=== PATIENT | male | born 1965 | race Caucasian/White ===

== ENCOUNTER 2018-07-29 13:06 | Inpatient (IN) | payer MEDICAID ==
[~2018-07-29] VITALS: Ht 157.5 cm; Wt 78.0 kg
[2018-07-29] MEDS ORDERED: ASPIRIN 81MG TABLET PO ONE (14:45)
[2018-07-29 14:52] LABS: BASOPHILS % 0.4 % (0.0-2.0); EOSINOPHILS % 0.5 % (0.0-5.0); HEMOGLOBIN. 13.8 g/dL (14.0-18.0); LYMPHOCYTES % 15.4 % (20.0-50.0); MEAN CORPUSCULAR HEMOGLOBIN 27.4 pg (28.0-32.0); MEAN CORPUSCULAR VOLUME 79.5 fL (80.0-94.0); MEAN PLATELET VOLUME 8.1 fl (7.4-10.4); MONOCYTES % 4.9 % (2.0-8.0); NEUTROPHILS % 78.8 % (40.0-76.0); PLATELET 376 x1000/uL (130-400); RED BLOOD CELL COUNT 5.04 mill/uL (4.7-6.1); RED CELL DISTRIBUTION WIDTH 14.1 % (11.6-14.6)
[2018-07-29 14:58] LABS: CHLORIDE 104 mEq/L (98-107)
[2018-07-29] MEDS ORDERED: CLONIDINE 0.1MG TABLET PO PRN (20:15)
[2018-07-29] MEDS ORDERED: IPRATROPIUM/ALBUTEROL 0.5-3(2.5)MG/3ML NEB INH PRN (20:15)
[2018-07-29] MEDS ORDERED: DOCUSATE SODIUM 100MG CAPSULE PO PRN (20:15)
[2018-07-29] MEDS ORDERED: ONDANSETRON HCL 4MG/2ML INJ IV PRN (20:15)
[2018-07-29] MEDS ORDERED: ACETAMINOPHEN 325MG TABLET PO PRN (20:15)
[2018-07-29] MEDS ORDERED: LORAZEPAM 0.5MG TABLET PO PRN (20:15)
[2018-07-29 20:34] LABS: PHOSPHORUS 3.5 mg/dL (2.5-4.9)
[2018-07-29 20:39] LABS: CREATINE KINASE MB FRACTION 2.7 ng/mL (0.5-3.6)
[2018-07-29 23:39] LABS: CLARITY URINE CLEAR (CLEAR); COLOR URINE YELLOW (YELLOW); KETONES URINE NEGATIVE (NEGATIVE); LEUKOCYTE ESTERASE URINE NEGATIVE (NEGATIVE); NITRITE URINE NEGATIVE (NEGATIVE); OCCULT BLOOD URINE NEGATIVE (NEGATIVE); PROTEIN URINE NEGATIVE (NEGATIVE); SPECIFIC GRAVITY URINE 1.018 (1.005-1.030); UROBILINOGEN URINE 0.2 E.U./dL (0.2-1.0)
[2018-07-30 00:41] LABS: *AMPHETAMINES SCREEN URINE NEGATIVE (NEGATIVE); *BARBITURATES SCREEN URINE NEGATIVE (NEGATIVE); *BENZODIAZEPINES SCREEN URINE NEGATIVE (NEGATIVE); *COCAINE SCREEN URINE NEGATIVE (NEGATIVE)
[2018-07-30 00:42] LABS: CANNABINOID URINE SCREEN NEGATIVE (NEGATIVE); METHADONE URINE SCREEN NEGATIVE (NEGATIVE); OPIATES URINE SCREEN NEGATIVE (NEGATIVE); PHENCYCLIDINE URINE SCREEN NEGATIVE (NEGATIVE)
[2018-07-30 03:05] VITALS: BP 107/61
[2018-07-30 04:00] VITALS: BP 107/61
[2018-07-30] MEDS ORDERED: AMIT25TA9 PO (05:07)
[2018-07-30] MEDS ORDERED: CARV3.1242 PO (05:08)
[2018-07-30] MEDS ORDERED: METF-416 PO (05:09)
[2018-07-30] MEDS ORDERED: NITR0.4T49 SL (05:09)
[2018-07-30] MEDS ORDERED: SITA25TA3 PO (05:10)
[2018-07-30 06:49] LABS: BASOPHILS % 0.4 % (0.0-2.0); EOSINOPHILS % 0.6 % (0.0-5.0); HEMOGLOBIN. 13.5 g/dL (14.0-18.0); LYMPHOCYTES % 20.2 % (20.0-50.0); MEAN CORPUSCULAR HEMOGLOBIN 27.5 pg (28.0-32.0); MEAN CORPUSCULAR VOLUME 79.6 fL (80.0-94.0); MONOCYTES % 4.9 % (2.0-8.0); NEUTROPHILS % 73.9 % (40.0-76.0); PLATELET 337 x1000/uL (130-400); RED BLOOD CELL COUNT 4.91 mill/uL (4.7-6.1)
[2018-07-30 07:32] LABS: CHLORIDE 105 mEq/L (98-107)
[2018-07-30 08:17] VITALS: BP 109/56
[2018-07-30 11:32] VITALS: BP 120/67
[2018-07-30] MEDS ORDERED: DEXTROSE 50% WATER 50ML SYRINGE IV PRN (13:30)
[2018-07-30] MEDS: HYDROCODONE/ACETAMINOPHEN 5/325MG TABLET PO PRN (15:22)
[2018-07-30 15:57] VITALS: BP 133/78
[2018-07-30] MEDS: BLOOD SUGAR DIAGNOSTIC STRIP TEST SCH ×2 (17:31→20:39)
[2018-07-30] MEDS: INSULIN LISPRO 100 UNITS/ML SUBCUT SCH ×2 (17:55→21:21)
[2018-07-30 20:00] VITALS: BP 119/59
[2018-07-30] MEDS: ATORVASTATIN CALCIUM 40MG TABLET PO SCH (20:39)
[2018-07-30] MEDS: METOPROLOL TARTRATE 25MG TABLET PO SCH (20:39)
[2018-07-31] VITALS (7 sets, daily range): BP systolic 113–136; BP diastolic 61–77
[2018-07-31 06:39] LABS: BASOPHILS % 0.3 % (0.0-2.0); EOSINOPHILS % 1.1 % (0.0-5.0); HEMATOCRIT. 40.3 % (42.0-52.0); HEMOGLOBIN. 14.1 g/dL (14.0-18.0); LYMPHOCYTES % 24.4 % (20.0-50.0); MEAN CORPUSCULAR HEMOGLOBIN 27.8 pg (28.0-32.0); MEAN CORPUSCULAR VOLUME 79.6 fL (80.0-94.0); MEAN PLATELET VOLUME 8.3 fl (7.4-10.4); MONOCYTES % 6.3 % (2.0-8.0); NEUTROPHILS % 67.9 % (40.0-76.0); PLATELET 323 x1000/uL (130-400); RED BLOOD CELL COUNT 5.07 mill/uL (4.7-6.1); RED CELL DISTRIBUTION WIDTH 14.1 % (11.6-14.6)
[2018-07-31] MEDS: BLOOD SUGAR DIAGNOSTIC STRIP TEST SCH ×4 (06:45→21:07)
[2018-07-31 07:42] LABS: CHLORIDE 103 mEq/L (98-107)
[2018-07-31] MEDS: METOPROLOL TARTRATE 25MG TABLET PO SCH ×2 (08:30→21:08)
[2018-07-31] MEDS: INSULIN LISPRO 100 UNITS/ML SUBCUT SCH ×4 (08:35→21:06)
[2018-07-31] MEDS ORDERED: HEPARIN SODIUM 1,000 UNIT/1ML VIAL IV ONE (13:42)
[2018-07-31] MEDS ORDERED: LIDOCAINE HCL 1% 20ML VIAL (Pyxis) INJ ONE (15:26)
[2018-07-31] MEDS ORDERED: IOHEXOL-300 100 ML BOTTLE ONE ×2 (15:26→15:56)
[2018-07-31] MEDS ORDERED: FENTANYL CITRATE/PF 50MCG/ML 2ML VIAL ONE (15:54)
[2018-07-31] MEDS ORDERED: MIDAZOLAM HCL 2 MG/2 ML VIAL ONE (15:54)
[2018-07-31] MEDS ORDERED: ATROPINE SULFATE 1MG/10ML SYR IV PRN (16:30)
[2018-07-31] MEDS ORDERED: ACETAMINOPHEN 325MG TABLET PO PRN (16:30)
[2018-07-31] MEDS: ASPIRIN 81MG EC TABLET PO SCH (17:46)
[2018-07-31] MEDS: ATORVASTATIN CALCIUM 40MG TABLET PO SCH (21:08)
[2018-07-31] MEDS: HYDROCODONE/ACETAMINOPHEN 5/325MG TABLET PO PRN (23:12)
[2018-08-01] VITALS (12 sets, daily range): BP systolic 100–145; BP diastolic 52–85
[2018-08-01] MEDS: BLOOD SUGAR DIAGNOSTIC STRIP TEST SCH ×4 (06:16→20:26)
[2018-08-01 07:09] LABS: BASOPHILS % 0.4 % (0.0-2.0); EOSINOPHILS % 1.2 % (0.0-5.0); HEMATOCRIT. 40.8 % (42.0-52.0); HEMOGLOBIN. 13.9 g/dL (14.0-18.0); LYMPHOCYTES % 23.8 % (20.0-50.0); MEAN CORPUSCULAR HEMOGLOBIN 27.5 pg (28.0-32.0); MEAN CORPUSCULAR VOLUME 80.6 fL (80.0-94.0); MEAN PLATELET VOLUME 8.1 fl (7.4-10.4); MONOCYTES % 6.4 % (2.0-8.0); NEUTROPHILS % 68.2 % (40.0-76.0); PLATELET 311 x1000/uL (130-400); RED BLOOD CELL COUNT 5.06 mill/uL (4.7-6.1); RED CELL DISTRIBUTION WIDTH 13.9 % (11.6-14.6)
[2018-08-01 07:30] LABS: CHLORIDE 103 mEq/L (98-107)
[2018-08-01] MEDS: ASPIRIN 81MG EC TABLET PO SCH (08:14)
[2018-08-01] MEDS: INSULIN LISPRO 100 UNITS/ML SUBCUT SCH ×4 (08:14→20:31)
[2018-08-01] MEDS: METOPROLOL TARTRATE 25MG TABLET PO SCH ×2 (08:15→20:32)
[2018-08-01] MEDS: LISINOPRIL 5MG TABLET PO SCH (11:01)
[2018-08-01] MEDS: ATORVASTATIN CALCIUM 40MG TABLET PO SCH (20:32)
[2018-08-02] VITALS (12 sets, daily range): BP systolic 103–140; BP diastolic 47–86
[2018-08-02 06:40] LABS: BASOPHILS % 0.3 % (0.0-2.0); EOSINOPHILS % 1.4 % (0.0-5.0); HEMATOCRIT. 42.4 % (42.0-52.0); HEMOGLOBIN. 14.5 g/dL (14.0-18.0); LYMPHOCYTES % 22.9 % (20.0-50.0); MEAN CORPUSCULAR HEMOGLOBIN 27.3 pg (28.0-32.0); MEAN CORPUSCULAR VOLUME 79.9 fL (80.0-94.0); MONOCYTES % 6.3 % (2.0-8.0); NEUTROPHILS % 69.1 % (40.0-76.0); PLATELET 277 x1000/uL (130-400); RED BLOOD CELL COUNT 5.31 mill/uL (4.7-6.1)
[2018-08-02 06:43] LABS: CHLORIDE 105 mEq/L (98-107)
[2018-08-02] MEDS: BLOOD SUGAR DIAGNOSTIC STRIP TEST SCH ×4 (06:52→20:21)
[2018-08-02] MEDS: INSULIN LISPRO 100 UNITS/ML SUBCUT SCH ×4 (07:30→20:21)
[2018-08-02] MEDS: LISINOPRIL 5MG TABLET PO SCH (09:17)
[2018-08-02] MEDS: ASPIRIN 81MG EC TABLET PO SCH (09:17)
[2018-08-02] MEDS: METOPROLOL TARTRATE 25MG TABLET PO SCH ×2 (09:17→20:20)
[2018-08-02] MEDS ORDERED: IOHEXOL-300 100 ML BOTTLE ONE (18:15)
[2018-08-02] MEDS: ATORVASTATIN CALCIUM 40MG TABLET PO SCH (20:20)
[2018-08-03] VITALS (12 sets, daily range): BP systolic 110–140; BP diastolic 47–80
[2018-08-03 06:02] LABS: BASOPHILS % 0.4 % (0.0-2.0); EOSINOPHILS % 1.6 % (0.0-5.0); HEMATOCRIT. 41.7 % (42.0-52.0); HEMOGLOBIN. 14.3 g/dL (14.0-18.0); LYMPHOCYTES % 21.7 % (20.0-50.0); MEAN CORPUSCULAR HEMOGLOBIN 27.6 pg (28.0-32.0); MEAN CORPUSCULAR VOLUME 80.4 fL (80.0-94.0); MONOCYTES % 5.7 % (2.0-8.0); NEUTROPHILS % 70.6 % (40.0-76.0); PLATELET 291 x1000/uL (130-400); RED BLOOD CELL COUNT 5.19 mill/uL (4.7-6.1); RED CELL DISTRIBUTION WIDTH 13.9 % (11.6-14.6)
[2018-08-03 06:03] LABS: CHLORIDE 105 mEq/L (98-107)
[2018-08-03] MEDS: BLOOD SUGAR DIAGNOSTIC STRIP TEST SCH ×4 (07:31→20:44)
[2018-08-03] MEDS: INSULIN LISPRO 100 UNITS/ML SUBCUT SCH ×4 (08:11→20:50)
[2018-08-03] MEDS: METOPROLOL TARTRATE 25MG TABLET PO SCH ×2 (08:53→20:53)
[2018-08-03] MEDS: LISINOPRIL 5MG TABLET PO SCH (08:53)
[2018-08-03] MEDS: ATORVASTATIN CALCIUM 40MG TABLET PO SCH (20:51)
[2018-08-04] VITALS (12 sets, daily range): BP systolic 109–134; BP diastolic 52–82
[2018-08-04] MEDS: BLOOD SUGAR DIAGNOSTIC STRIP TEST SCH ×4 (06:23→20:43)
[2018-08-04 06:41] LABS: BASOPHILS % 0.2 % (0.0-2.0); EOSINOPHILS % 1.8 % (0.0-5.0); HEMATOCRIT. 41.4 % (42.0-52.0); HEMOGLOBIN. 14.2 g/dL (14.0-18.0); LYMPHOCYTES % 21.3 % (20.0-50.0); MEAN CORPUSCULAR HEMOGLOBIN 27.2 pg (28.0-32.0); MEAN CORPUSCULAR VOLUME 79.4 fL (80.0-94.0); MEAN PLATELET VOLUME 7.9 fl (7.4-10.4); MONOCYTES % 5.9 % (2.0-8.0); NEUTROPHILS % 70.8 % (40.0-76.0); PLATELET 272 x1000/uL (130-400); RED BLOOD CELL COUNT 5.22 mill/uL (4.7-6.1); RED CELL DISTRIBUTION WIDTH 14.3 % (11.6-14.6)
[2018-08-04 06:54] LABS: CHLORIDE 103 mEq/L (98-107)
[2018-08-04] MEDS: LISINOPRIL 5MG TABLET PO SCH (08:10)
[2018-08-04] MEDS: METOPROLOL TARTRATE 25MG TABLET PO SCH ×2 (08:10→20:55)
[2018-08-04] MEDS: INSULIN LISPRO 100 UNITS/ML SUBCUT SCH ×4 (08:14→20:53)
[2018-08-04] MEDS ORDERED: INSULIN GLARGINE UD 100 UNITS/ML SYR SUBCUT SCH (10:00)
[2018-08-04] MEDS: ATORVASTATIN CALCIUM 40MG TABLET PO SCH (20:54)
[2018-08-05] VITALS (12 sets, daily range): BP systolic 101–131; BP diastolic 57–78
[2018-08-05] MEDS: BLOOD SUGAR DIAGNOSTIC STRIP TEST SCH ×4 (06:33→21:00)
[2018-08-05] MEDS: LISINOPRIL 5MG TABLET PO SCH (08:08)
[2018-08-05] MEDS: METOPROLOL TARTRATE 25MG TABLET PO SCH ×2 (08:08→21:05)
[2018-08-05] MEDS: INSULIN LISPRO 100 UNITS/ML SUBCUT SCH ×4 (08:16→21:08)
[2018-08-05] MEDS: INSULIN GLARGINE UD 100 UNITS/ML SYR SUBCUT SCH ×3 (11:09→21:24)
[2018-08-05 12:42] LABS: INR 1.1; PARTIAL THROMBOPLASTIN TIME 27.8 sec (23.4-31.0); PROTHROMBIN TIME 10.9 sec (9.1-11.1)
[2018-08-05] MEDS: ATORVASTATIN CALCIUM 40MG TABLET PO SCH (21:05)
[2018-08-05] MEDS ORDERED: CHLORHEXIDINE GLUCONATE 4% EXTERNAL USE TOP SCH (22:00)
[2018-08-06] VITALS (33 sets, daily range): BP systolic 80–156; BP diastolic 38–78
[2018-08-06] MEDS ORDERED: INSULIN REGULAR (DRIP) 100 UNITS in SODIUM CHLORIDE 0.9% 99 ML IV SCH (00:30)
[2018-08-06] MEDS ORDERED: BLOOD SUGAR DIAGNOSTIC STRIP TEST SCH (04:00)
[2018-08-06] MEDS ORDERED: CHLORHEXIDINE GLUCONATE 4% EXTERNAL USE TOP SCH (05:00)
[2018-08-06] MEDS: BLOOD SUGAR DIAGNOSTIC STRIP TEST SCH ×6 (06:42→22:43)
[2018-08-06] MEDS: INSULIN LISPRO 100 UNITS/ML SUBCUT SCH (06:42)
[2018-08-06 06:45] LABS: INR 1.1; PROTHROMBIN TIME 11.3 sec (9.1-11.1)
[2018-08-06 07:08] LABS: BASOPHILS % 0.5 % (0.0-2.0); EOSINOPHILS % 1.5 % (0.0-5.0); HEMOGLOBIN. 14.5 g/dL (14.0-18.0); LYMPHOCYTES % 22.4 % (20.0-50.0); MEAN CORPUSCULAR HEMOGLOBIN 27.2 pg (28.0-32.0); MEAN CORPUSCULAR VOLUME 80.6 fL (80.0-94.0); MEAN PLATELET VOLUME 8.2 fl (7.4-10.4); MONOCYTES % 6.4 % (2.0-8.0); NEUTROPHILS % 69.2 % (40.0-76.0); PLATELET 246 x1000/uL (130-400); RED BLOOD CELL COUNT 5.33 mill/uL (4.7-6.1); RED CELL DISTRIBUTION WIDTH 14.3 % (11.6-14.6)
[2018-08-06] MEDS ORDERED: NICARDIPINE 40MG/200ML PREMIX 200 ML IV SCH (08:00)
[2018-08-06] MEDS ORDERED: NOREPINEPHRINE 4 MG in DEXT 5% WATER 246 ML IV SCH (08:00)
[2018-08-06] MEDS ORDERED: PAPAVERINE HCL 180MG in SODIUM CHLORIDE 0.9% 24ML IV SCH (08:00)
[2018-08-06] MEDS ORDERED: DEL NIDO ELECTROLYTE-S(PH 7.4) 1,000 ML IV SCH ×2 (08:00)
[2018-08-06] MEDS ORDERED: EPINEPHRINE 4 MG in DEXT 5% WATER 246 ML IV SCH (08:00)
[2018-08-06] MEDS ORDERED: AMINOCAPROIC ACID 10,000 MG in SODIUM CHLORIDE 0.9% 460 ML IV SCH (08:00)
[2018-08-06] MEDS ORDERED: CEFAZOLIN 2,000 MG in DEXT 5% WATER 100 ML IV SCH (08:00)
[2018-08-06] MEDS ORDERED: DOBUTAMINE HCL 250 MG in DEXT 5% WATER 230 ML IV SCH (08:00)
[2018-08-06 09:29] LABS: CHLORIDE 106 mEq/L (98-107)
[2018-08-06] MEDS ORDERED: BACITRACIN 15GM TUBE TOP ONE (09:55)
[2018-08-06] MEDS ORDERED: METHYLENE BLUE 50 MG/10 ML AMP IV ONE (09:55)
[2018-08-06] MEDS ORDERED: THROMBIN (BOVINE) 5000 UNITS/VIAL TOP ONE ×2 (09:55→09:56)
[2018-08-06] MEDS ORDERED: BACITRACIN 50,000 UNITS/VIAL ONE (09:56)
[2018-08-06] MEDS ORDERED: NORMAL SALINE 0.9% 10 ML SYR ONE (09:56)
[2018-08-06] MEDS ORDERED: SODIUM CHLORIDE 0.9% 3,000 ML ONE (09:56)
[2018-08-06] MEDS ORDERED: SKIN ADHESIVE 0.7 GM EA TOP ONE (09:57)
[2018-08-06] MEDS ORDERED: ALBUMIN HUMAN 25GM/100ML (25%) IV ONE (10:08)
[2018-08-06] MEDS ORDERED: POTASSIUM CHLORIDE 40MEQ/20ML INJ IV ONE (10:08)
[2018-08-06] MEDS ORDERED: PHENYLEPHRINE HCL 10 MG/ML 1ML (IV VIAL) IV ONE ×3 (10:08→15:51)
[2018-08-06] MEDS ORDERED: MAGNESIUM SULFATE 5GM/10ML VIAL IV ONE (10:08)
[2018-08-06] MEDS ORDERED: AMIODARONE HCL 50MG/ML 3ML VIAL IV ONE (10:08)
[2018-08-06] MEDS ORDERED: AMINOCAPROIC ACID 250 MG/ML 20ML VIAL ONE (10:08)
[2018-08-06] MEDS ORDERED: SODIUM BICARBONATE 8.4% 1 MEQ/ML 50ML SYR IV ONE ×3 (10:09→18:23)
[2018-08-06] MEDS ORDERED: LIDOCAINE HCL 2% 5ML SYRINGE IV ONE (10:09)
[2018-08-06] MEDS ORDERED: CALCIUM CHLORIDE 1GM/10ML SYR IV ONE ×2 (10:09→17:38)
[2018-08-06] MEDS ORDERED: HEPARIN 10,000 UNITS/ML VIAL ONE (10:10)
[2018-08-06] MEDS ORDERED: HEPARIN 1000 UNITS/ML 10ML ONE ×2 (10:10→10:37)
[2018-08-06] MEDS ORDERED: MANNITOL 20% 500 ML IV ONE (10:10)
[2018-08-06] MEDS ORDERED: MIDAZOLAM HCL 5 MG/ML VIAL ONE (10:16)
[2018-08-06] MEDS ORDERED: SODIUM CHLORIDE 0.9% 10ML VIAL ONE (10:17)
[2018-08-06] MEDS ORDERED: ESMOLOL HCL 10MG/ML 10ML VIAL IV ONE (10:17)
[2018-08-06] MEDS ORDERED: CEFAZOLIN SODIUM 1000MG/VIAL ONE (10:17)
[2018-08-06] MEDS ORDERED: PROPOFOL 200MG/20ML VIAL IV ONE (10:20)
[2018-08-06] MEDS ORDERED: ROCURONIUM BROMIDE 10MG/ML VIAL 5ML IV ONE ×4 (11:37→16:55)
[2018-08-06] MEDS ORDERED: FENTANYL CITRATE/PF 50MCG/ML 5ML VIAL ONE ×2 (12:12→18:52)
[2018-08-06] MEDS ORDERED: PROPOFOL 10MG/ML 100ML 100 ML IV ONE ×2 (14:27→19:06)
[2018-08-06] MEDS ORDERED: NITROPRUSSIDE 50 MG in DEXT 5% WATER 248 ML IV NR (14:30)
[2018-08-06] MEDS ORDERED: MIDAZOLAM HCL 2 MG/2 ML VIAL ONE ×2 (15:31→18:53)
[2018-08-06] MEDS ORDERED: PROTAMINE SULFATE 10MG/ML VIAL 25ML IV ONE (15:31)
[2018-08-06] MEDS ORDERED: FENTANYL CITRATE/PF 50MCG/ML 2ML VIAL ONE ×2 (15:32→16:55)
[2018-08-06] MEDS ORDERED: NITROGLYCERIN 50MG PREMIX 250 ML IV ONE (15:49)
[2018-08-06 17:17] LABS: EOSINOPHILS % 0.2 % (0.0-5.0); LYMPHOCYTES % 8.1 % (20.0-50.0); MEAN CORPUSCULAR HEMOGLOBIN 29.3 pg (28.0-32.0); MEAN CORPUSCULAR VOLUME 81.6 fL (80.0-94.0); MEAN PLATELET VOLUME 7.5 fl (7.4-10.4); MONOCYTES % 3.1 % (2.0-8.0); NEUTROPHILS % 88.6 % (40.0-76.0); PLATELET 115 x1000/uL (130-400); RED BLOOD CELL COUNT 1.76 mill/uL (4.7-6.1); RED CELL DISTRIBUTION WIDTH 13.9 % (11.6-14.6)
[2018-08-06 17:20] LABS: CHLORIDE 119 mEq/L (98-107)
[2018-08-06 17:26] LABS: PHOSPHORUS 4.1 mg/dL (2.5-4.9)
[2018-08-06] MEDS ORDERED: MAGNESIUM SULFATE 3 GM in DEXT 5% WATER 100 ML IV NR (17:30)
[2018-08-06 17:33] LABS: HEMATOCRIT. 14.4 % (42.0-52.0); HEMOGLOBIN. 5.2 g/dL (14.0-18.0); INR 1.5; PARTIAL THROMBOPLASTIN TIME 38.9 sec (23.4-31.0); PROTHROMBIN TIME 14.9 sec (9.1-11.1)
[2018-08-06] MEDS ORDERED: KCL 20MEQ/100ML PREMIX 100 ML IV ONE ×2 (17:37→18:09)
[2018-08-06 18:26] LABS: BASOPHILS % 0.1 % (0.0-2.0); EOSINOPHILS % 0.2 % (0.0-5.0); HEMATOCRIT. 30.9 % (42.0-52.0); HEMOGLOBIN. 10.7 g/dL (14.0-18.0); LYMPHOCYTES % 7.7 % (20.0-50.0); MEAN CORPUSCULAR HEMOGLOBIN 28.6 pg (28.0-32.0); MEAN CORPUSCULAR VOLUME 82.7 fL (80.0-94.0); MEAN PLATELET VOLUME 7.7 fl (7.4-10.4); MONOCYTES % 5.9 % (2.0-8.0); NEUTROPHILS % 86.1 % (40.0-76.0); PLATELET 150 x1000/uL (130-400); RED BLOOD CELL COUNT 3.73 mill/uL (4.7-6.1); RED CELL DISTRIBUTION WIDTH 14.5 % (11.6-14.6)
[2018-08-06 18:32] LABS: CHLORIDE 109 mEq/L (98-107)
[2018-08-06 18:34] LABS: INR 1.3; PARTIAL THROMBOPLASTIN TIME 22.9 sec (23.4-31.0); PROTHROMBIN TIME 12.7 sec (9.1-11.1)
[2018-08-06] MEDS ORDERED: SEVOFLURANE 250 ML LIQUID INH ONE (19:06)
[2018-08-06] MEDS: DEXT 5%/0.45% NACL 1000ML 1,000 ML IV SCH (19:29)
[2018-08-06] MEDS ORDERED: DOBUTAMINE 250MG PREMIX 250 ML IV SCH (19:29)
[2018-08-06] MEDS ORDERED: SODIUM CHLORIDE 0.9% 500 ML IV PRN (19:29)
[2018-08-06] MEDS ORDERED: MILRINONE 20MG-DEXT 5% PREMIX 100 ML IV SCH (19:29)
[2018-08-06] MEDS ORDERED: ACETAMINOPHEN 325MG TABLET PO PRN (19:30)
[2018-08-06] MEDS ORDERED: ALBUMIN HUMAN 12.5G/250ML (5%) IV PRN (19:30)
[2018-08-06] MEDS ORDERED: CALCIUM CHLORIDE 2,000 MG in DEXT 5% WATER 250 ML IV NR (19:30)
[2018-08-06] MEDS ORDERED: CEFAZOLIN 1000MG PREMIX 50 ML IV SCH (19:30)
[2018-08-06] MEDS ORDERED: DEXTROSE 50% WATER 50ML SYRINGE IV PRN ×2 (19:30)
[2018-08-06] MEDS ORDERED: MAGNESIUM 2 G PREMIX 50 ML IV PRN (19:30)
[2018-08-06] MEDS ORDERED: ACETAMINOPHEN 650MG SUPP PR PRN (19:30)
[2018-08-06] MEDS ORDERED: OXYCODONE HCL/ACETAMINOPHEN 5/325MG TABLET PO PRN (19:30)
[2018-08-06] MEDS ORDERED: ONDANSETRON HCL 4MG/2ML INJ IV PRN (19:30)
[2018-08-06 19:42] LABS: HEMATOCRIT. 36.8 % (42.0-52.0); HEMOGLOBIN. 12.7 g/dL (14.0-18.0); MEAN CORPUSCULAR VOLUME 84.2 fL (80.0-94.0); MEAN PLATELET VOLUME 7.5 fl (7.4-10.4); PLATELET 138 x1000/uL (130-400); RED BLOOD CELL COUNT 4.37 mill/uL (4.7-6.1); RED CELL DISTRIBUTION WIDTH 15.8 % (11.6-14.6)
[2018-08-06 19:43] LABS: BG BASE EXCESS -5.5 mmol/L (-2.0-2.0); BG CARBOXYHEMOGLOBIN 0.3 % (0.5-1.5); BG DEOXYHEMOGLOBIN 1.3 % (0.0-5.0); BG FRACTION INSPIRED OXYGEN 100; BG HCO3 ACT 18.5 mmol/L (22.0-26.0); BG METHEMOGLOBIN 0.3 % (0.0-1.5); BG OXYGEN SATURATION 98.7 % (92.0-98.5); BG OXYHEMOGLOBIN 98.1 % (94.0-97.0); BG PCO2 31.3 mmHg (35.0-45.0); BG PO2 215.1 mmHg (75.0-100.0); BG SAMPLE SITE A-LINE; BG TIDAL VOLUME(mL) 750 mL; BG TOTAL HEMOGLOBIN 11.6 g/dL (12.0-18.0); BG VENT MODE VENT; BG VENT RATE 12 set
[2018-08-06 19:50] LABS: CHLORIDE 112 mEq/L (98-107); INR 1.2; PARTIAL THROMBOPLASTIN TIME 25.2 sec (23.4-31.0); PROTHROMBIN TIME 12.3 sec (9.1-11.1)
[2018-08-06 19:55] LABS: PHOSPHORUS 3.9 mg/dL (2.5-4.9)
[2018-08-06] MEDS ORDERED: ALBUMIN HUMAN 12.5G/250ML (5%) IV ONE (20:10)
[2018-08-06] MEDS ORDERED: POTASSIUM CHLORIDE 10MEQ IN WATER 50ML PREMIX IV ONE (20:10)
[2018-08-06] MEDS ORDERED: MAGNESIUM SULFATE 1G IN DEXT 5% 100ML PREMIX IV ONE (20:10)
[2018-08-06] MEDS ORDERED: KETOROLAC 30MG/ML VIAL ONE (20:10)
[2018-08-06 20:13] LABS: PLATELET ESTIMATE NORMAL
[2018-08-06] MEDS ORDERED: KCL 10MEQ/50ML PREMIX 100 ML IV PRN (20:15)
[2018-08-06] MEDS: MAGNESIUM SULFATE 3 GM in DEXT 5% WATER 100 ML IV PRN (20:24)
[2018-08-06] MEDS ORDERED: SODIUM BICARBONATE 8.4% 1 MEQ/ML 50ML SYR IV NR ×2 (20:30→23:15)
[2018-08-06] MEDS: LACTATED RINGERS 1,000 ML IV SCH (20:59)
[2018-08-06] MEDS ORDERED: ALBUMIN HUMAN 25GM/500ML (5%) IV NR (21:00)
[2018-08-06] MEDS: ATORVASTATIN CALCIUM 40MG TABLET PO SCH (21:00)
[2018-08-06] MEDS: NITROGLYCERIN 50MG PREMIX 250 ML IV SCH (21:14)
[2018-08-06] MEDS: PROPOFOL 10MG/ML 100ML 100 ML IV PRN (21:32)
[2018-08-06] MEDS: INSULIN REGULAR (DRIP) 100 UNITS in SODIUM CHLORIDE 0.9% 100 ML IV SCH (21:35)
[2018-08-06 22:40] LABS: BG BASE EXCESS -5.1 mmol/L (-2.0-2.0); BG CARBOXYHEMOGLOBIN 0.6 % (0.5-1.5); BG DEOXYHEMOGLOBIN 1.1 % (0.0-5.0); BG FRACTION INSPIRED OXYGEN 70; BG HCO3 ACT 18.8 mmol/L (22.0-26.0); BG METHEMOGLOBIN 0.4 % (0.0-1.5); BG OXYGEN SATURATION 98.9 % (92.0-98.5); BG OXYHEMOGLOBIN 97.9 % (94.0-97.0); BG PCO2 31.7 mmHg (35.0-45.0); BG PH 7.391 (7.350-7.450); BG PO2 201.4 mmHg (75.0-100.0); BG SAMPLE SITE A-LINE; BG TIDAL VOLUME(mL) 750 mL; BG TOTAL HEMOGLOBIN 13.3 g/dL (12.0-18.0); BG VENT MODE VENT - A/C; BG VENT RATE 12 set
[2018-08-06] MEDS: MILRINONE 20MG-DEXT 5% PREMIX 100 ML IV SCH (23:59)
[2018-08-07] VITALS (95 sets, daily range): BP systolic 88–149; BP diastolic 25–79
[2018-08-07] MEDS: IPRATROPIUM/ALBUTEROL 0.5-3(2.5)MG/3ML NEB HHN SCH ×4 (00:56→22:48)
[2018-08-07] MEDS: BLOOD SUGAR DIAGNOSTIC STRIP TEST SCH ×22 (00:58→22:20)
[2018-08-07] MEDS: CEFAZOLIN 1000MG PREMIX 50 ML IV SCH ×4 (00:58→18:16)
[2018-08-07 01:02] LABS: BG BASE EXCESS 1.4 mmol/L (-2.0-2.0); BG CARBOXYHEMOGLOBIN 0.3 % (0.5-1.5); BG DEOXYHEMOGLOBIN 2.7 % (0.0-5.0); BG FRACTION INSPIRED OXYGEN 50; BG HCO3 ACT 24.9 mmol/L (22.0-26.0); BG METHEMOGLOBIN 0.2 % (0.0-1.5); BG OXYGEN SATURATION 97.3 % (92.0-98.5); BG OXYHEMOGLOBIN 96.8 % (94.0-97.0); BG PCO2 35.6 mmHg (35.0-45.0); BG PH 7.463 (7.350-7.450); BG PO2 100.9 mmHg (75.0-100.0); BG SAMPLE SITE A-LINE; BG TIDAL VOLUME(mL) 750 mL; BG TOTAL HEMOGLOBIN 11.7 g/dL (12.0-18.0); BG VENT MODE VENT - A/C; BG VENT RATE 12 set
[2018-08-07 01:07] LABS: HEMATOCRIT. 31.7 % (42.0-52.0); HEMOGLOBIN. 11.3 g/dL (14.0-18.0); MEAN CORPUSCULAR HEMOGLOBIN 29.4 pg (28.0-32.0); MEAN CORPUSCULAR VOLUME 82.6 fL (80.0-94.0); MEAN PLATELET VOLUME 7.1 fl (7.4-10.4); PLATELET 216 x1000/uL (130-400); RED BLOOD CELL COUNT 3.84 mill/uL (4.7-6.1); RED CELL DISTRIBUTION WIDTH 15.4 % (11.6-14.6)
[2018-08-07 01:14] LABS: CHLORIDE 110 mEq/L (98-107)
[2018-08-07 01:16] LABS: INR 1.2; PARTIAL THROMBOPLASTIN TIME 30.5 sec (23.4-31.0)
[2018-08-07 01:19] LABS: PHOSPHORUS 1.8 mg/dL (2.5-4.9)
[2018-08-07 01:33] LABS: PLATELET ESTIMATE NORMAL
[2018-08-07] MEDS: KCL 10MEQ/50ML PREMIX 200 ML IV PRN ×3 (01:41→12:03)
[2018-08-07] MEDS: INSULIN REGULAR (DRIP) 100 UNITS in SODIUM CHLORIDE 0.9% 100 ML IV SCH ×2 (02:06→09:59)
[2018-08-07] MEDS: MAGNESIUM 1 G PREMIX 100 ML IV PRN ×4 (02:23→06:38)
[2018-08-07] MEDS: OXYCODONE HCL/ACETAMINOPHEN 5/325MG TABLET PO PRN ×3 (02:37→19:40)
[2018-08-07] MEDS: PROPOFOL 10MG/ML 100ML 100 ML IV PRN (03:42)
[2018-08-07 04:49] LABS: BG BASE EXCESS 2.6 mmol/L (-2.0-2.0); BG CARBOXYHEMOGLOBIN 0.3 % (0.5-1.5); BG DEOXYHEMOGLOBIN 3.7 % (0.0-5.0); BG FRACTION INSPIRED OXYGEN 50; BG HCO3 ACT 25.8 mmol/L (22.0-26.0); BG METHEMOGLOBIN 1.3 % (0.0-1.5); BG OXYGEN SATURATION 96.2 % (92.0-98.5); BG OXYHEMOGLOBIN 94.7 % (94.0-97.0); BG PCO2 34.6 mmHg (35.0-45.0); BG PO2 90.3 mmHg (75.0-100.0); BG SAMPLE SITE A-LINE; BG TIDAL VOLUME(mL) 750 mL; BG TOTAL HEMOGLOBIN 10.8 g/dL (12.0-18.0); BG VENT MODE VENT - A/C; BG VENT RATE 12 set
[2018-08-07 04:53] LABS: HEMATOCRIT. 28.5 % (42.0-52.0); HEMOGLOBIN. 10.1 g/dL (14.0-18.0); MEAN CORPUSCULAR HEMOGLOBIN 29.5 pg (28.0-32.0); MEAN CORPUSCULAR VOLUME 82.7 fL (80.0-94.0); MEAN PLATELET VOLUME 7.3 fl (7.4-10.4); PLATELET 189 x1000/uL (130-400); RED BLOOD CELL COUNT 3.44 mill/uL (4.7-6.1); RED CELL DISTRIBUTION WIDTH 15.2 % (11.6-14.6)
[2018-08-07 05:00] LABS: CHLORIDE 109 mEq/L (98-107)
[2018-08-07 05:02] LABS: INR 1.2; PARTIAL THROMBOPLASTIN TIME 26.8 sec (23.4-31.0); PROTHROMBIN TIME 11.9 sec (9.1-11.1)
[2018-08-07 05:05] LABS: PHOSPHORUS 2.9 mg/dL (2.5-4.9)
[2018-08-07] MEDS: MILRINONE 20MG-DEXT 5% PREMIX 100 ML IV SCH (05:36)
[2018-08-07] MEDS: NITROGLYCERIN 50MG PREMIX 250 ML IV SCH ×2 (06:47→12:04)
[2018-08-07] MEDS: DOBUTAMINE 250MG PREMIX 250 ML IV SCH ×2 (07:27)
[2018-08-07] MEDS: MAGNESIUM/ALUMINUM HYDROXIDE/SIMETHICONE 30ML UDC NG SCH ×5 (08:00→21:32)
[2018-08-07] MEDS: LACTATED RINGERS 1,000 ML IV SCH (08:38)
[2018-08-07] MEDS: METOPROLOL TARTRATE 25MG TABLET PO SCH (09:00)
[2018-08-07] MEDS: LISINOPRIL 5MG TABLET PO SCH (09:00)
[2018-08-07] MEDS: FAMOTIDINE 20MG/2ML VIAL IV SCH ×2 (09:00→10:08)
[2018-08-07] MEDS: DOCUSATE SODIUM 100MG CAPSULE PO SCH ×2 (09:00→16:12)
[2018-08-07 09:42] LABS: CHLORIDE 109 mEq/L (98-107)
[2018-08-07 09:47] LABS: PHOSPHORUS 2.6 mg/dL (2.5-4.9)
[2018-08-07] MEDS: INSULIN GLARGINE UD 100 UNITS/ML SYR SUBCUT SCH ×2 (10:00→22:00)
[2018-08-07 10:22] LABS: PLATELET ESTIMATE NORMAL
[2018-08-07 10:57] LABS: BG BASE EXCESS 4.1 mmol/L (-2.0-2.0); BG CARBOXYHEMOGLOBIN 0.3 % (0.5-1.5); BG CPAP (cmH2O) 0 cm(H2O); BG HCO3 ACT 26.9 mmol/L (22.0-26.0); BG METHEMOGLOBIN 0.5 % (0.0-1.5); BG OXYHEMOGLOBIN 95.2 % (94.0-97.0); BG PH 7.516 (7.350-7.450); BG PO2 77.4 mmHg (75.0-100.0); BG SAMPLE SITE A-LINE; BG TOTAL HEMOGLOBIN 10.8 g/dL (12.0-18.0); BG VENT MODE VENT - CPAP
[2018-08-07] MEDS ORDERED: HYDROMORPHONE HCL/PF 2MG/ML CPJ IV PRN (12:00)
[2018-08-07] MEDS: BACITRACIN 15GM TUBE TOP SCH ×2 (12:21→17:09)
[2018-08-07] MEDS ORDERED: METOPROLOL TARTRATE 50MG TABLET PO SCH (13:15)
[2018-08-07] MEDS ORDERED: FUROSEMIDE 20MG/2ML VIAL IVP NR (14:45)
[2018-08-07] MEDS: KCL 10MEQ/50ML PREMIX 150 ML IV PRN ×2 (15:58→18:16)
[2018-08-07] MEDS: KCL 10MEQ/50ML PREMIX 50 ML IV SCH ×3 (16:12→18:17)
[2018-08-07] MEDS ORDERED: ALBUMIN HUMAN 12.5G/250ML (5%) IV PRN (18:45)
[2018-08-07] MEDS: DEXT 5%/0.45% NACL 1000ML 1,000 ML IV SCH (21:00)
[2018-08-07] MEDS: METOPROLOL TARTRATE 50MG TABLET PO SCH (21:00)
[2018-08-07] MEDS: ATORVASTATIN CALCIUM 40MG TABLET PO SCH (21:32)
[2018-08-08] VITALS (23 sets, daily range): BP systolic 101–143; BP diastolic 41–80
[2018-08-08] MEDS: BLOOD SUGAR DIAGNOSTIC STRIP TEST SCH ×14 (00:05→20:47)
[2018-08-08] MEDS: MAGNESIUM/ALUMINUM HYDROXIDE/SIMETHICONE 30ML UDC NG SCH ×3 (00:11→08:31)
[2018-08-08] MEDS: LACTATED RINGERS 1,000 ML IV SCH (00:11)
[2018-08-08] MEDS: CEFAZOLIN 1000MG PREMIX 50 ML IV SCH (00:11)
[2018-08-08] MEDS ORDERED: ALBUMIN HUMAN 25GM/500ML (5%) IV SCH (01:00)
[2018-08-08] MEDS ORDERED: POTASSIUM CHLORIDE INJ 40 MEQ in DEXT 5% WATER 250 ML IV SCH (01:00)
[2018-08-08] MEDS: IPRATROPIUM/ALBUTEROL 0.5-3(2.5)MG/3ML NEB HHN SCH ×6 (01:26→21:55)
[2018-08-08] MEDS: OXYCODONE HCL/ACETAMINOPHEN 5/325MG TABLET PO PRN ×2 (04:25→09:58)
[2018-08-08 06:01] LABS: CHLORIDE 105 mEq/L (98-107)
[2018-08-08 06:09] LABS: HEMATOCRIT. 31.7 % (42.0-52.0); HEMOGLOBIN. 11.2 g/dL (14.0-18.0); MEAN CORPUSCULAR HEMOGLOBIN 29.5 pg (28.0-32.0); MEAN CORPUSCULAR VOLUME 83.6 fL (80.0-94.0); MEAN PLATELET VOLUME 8.1 fl (7.4-10.4); PHOSPHORUS 2.8 mg/dL (2.5-4.9); PLATELET 150 x1000/uL (130-400); RED BLOOD CELL COUNT 3.79 mill/uL (4.7-6.1); RED CELL DISTRIBUTION WIDTH 15.4 % (11.6-14.6)
[2018-08-08] MEDS ORDERED: FUROSEMIDE 20MG/2ML VIAL IVP SCH ×2 (08:00)
[2018-08-08] MEDS: DOCUSATE SODIUM 100MG CAPSULE PO SCH ×2 (08:31→17:24)
[2018-08-08] MEDS: FAMOTIDINE 20MG/2ML VIAL IV SCH (08:31)
[2018-08-08] MEDS: BACITRACIN 15GM TUBE TOP SCH ×2 (08:32→17:22)
[2018-08-08] MEDS: METOPROLOL TARTRATE 50MG TABLET PO SCH ×2 (08:32→21:50)
[2018-08-08] MEDS: LISINOPRIL 5MG TABLET PO SCH (09:58)
[2018-08-08] MEDS ORDERED: DEXT 5% IV NR (10:00)
[2018-08-08] MEDS ORDERED: WATER IV NR (10:00)
[2018-08-08] MEDS ORDERED: POTASSIUM CHLORIDE IV NR (10:00)
[2018-08-08 10:16] LABS: PLATELET ESTIMATE NORMAL
[2018-08-08] MEDS: INSULIN GLARGINE UD 100 UNITS/ML SYR SUBCUT SCH ×2 (10:50→21:52)
[2018-08-08] MEDS: MAGNESIUM SULFATE 3 GM in DEXT 5% WATER 100 ML IV PRN (10:55)
[2018-08-08] MEDS: INSULIN REGULAR (DRIP) 100 UNITS in SODIUM CHLORIDE 0.9% 100 ML IV SCH (11:00)
[2018-08-08] MEDS: DEXT 5%/0.45% NACL 1000ML 1,000 ML IV SCH (11:00)
[2018-08-08] MEDS ORDERED: ASPIRIN 81MG TABLET PO SCH (12:00)
[2018-08-08] MEDS ORDERED: DEXTROSE 50% WATER 50ML SYRINGE IV PRN (12:30)
[2018-08-08] MEDS ORDERED: MAGNESIUM/ALUMINUM HYDROXIDE/SIMETHICONE 30ML UDC NG PRN (12:45)
[2018-08-08] MEDS: INSULIN LISPRO 100 UNITS/ML SUBCUT SCH ×3 (13:20→20:55)
[2018-08-08] MEDS: PIPERACILLIN/TAZ 3.375G PREMIX 50 ML IV SCH ×2 (15:58→21:38)
[2018-08-08] MEDS: ACETYLCYSTEINE 100MG/ML 10% VIAL 4ML INH SCH (16:10)
[2018-08-08] MEDS: ATORVASTATIN CALCIUM 40MG TABLET PO SCH (20:54)
[2018-08-08] MEDS ORDERED: INSULIN GLARGINE UD 100 UNITS/ML SYR SUBCUT SCH (22:00)
[2018-08-09] VITALS (17 sets, daily range): BP systolic 93–138; BP diastolic 50–79
[2018-08-09] MEDS: IPRATROPIUM/ALBUTEROL 0.5-3(2.5)MG/3ML NEB HHN SCH ×6 (00:31→21:21)
[2018-08-09] MEDS: ACETYLCYSTEINE 100MG/ML 10% VIAL 4ML INH SCH ×3 (00:31→16:24)
[2018-08-09] MEDS: PIPERACILLIN/TAZ 3.375G PREMIX 50 ML IV SCH ×4 (02:52→22:28)
[2018-08-09] MEDS: BLOOD SUGAR DIAGNOSTIC STRIP TEST SCH ×4 (05:46→20:43)
[2018-08-09] MEDS: INSULIN LISPRO 100 UNITS/ML SUBCUT SCH ×4 (07:20→20:52)
[2018-08-09 07:38] LABS: HEMATOCRIT. 32.3 % (42.0-52.0); MEAN CORPUSCULAR HEMOGLOBIN 28.8 pg (28.0-32.0); MEAN CORPUSCULAR VOLUME 84.8 fL (80.0-94.0); MEAN PLATELET VOLUME 8.4 fl (7.4-10.4); PLATELET 147 x1000/uL (130-400); RED BLOOD CELL COUNT 3.81 mill/uL (4.7-6.1); RED CELL DISTRIBUTION WIDTH 15.7 % (11.6-14.6)
[2018-08-09] MEDS: DOCUSATE SODIUM 100MG CAPSULE PO SCH ×2 (08:57→17:08)
[2018-08-09] MEDS: FAMOTIDINE 20MG/2ML VIAL IV SCH (08:57)
[2018-08-09] MEDS: BACITRACIN 15GM TUBE TOP SCH ×2 (08:57→17:08)
[2018-08-09] MEDS: METOPROLOL TARTRATE 50MG TABLET PO SCH ×2 (08:57→22:33)
[2018-08-09] MEDS: LISINOPRIL 5MG TABLET PO SCH (08:57)
[2018-08-09] MEDS ORDERED: ASPIRIN 81MG TABLET PO SCH (09:00)
[2018-08-09] MEDS ORDERED: CLOPIDOGREL 75MG TABLET PO SCH (09:00)
[2018-08-09] MEDS: OXYCODONE HCL/ACETAMINOPHEN 5/325MG TABLET PO PRN ×2 (09:04→20:53)
[2018-08-09 09:45] LABS: CHLORIDE 102 mEq/L (98-107)
[2018-08-09 09:55] LABS: PHOSPHORUS 1.8 mg/dL (2.5-4.9)
[2018-08-09] MEDS ORDERED: FUROSEMIDE 40MG/4ML VIAL IVP SCH (11:00)
[2018-08-09] MEDS: ASPIRIN 81MG EC TABLET PO SCH (11:59)
[2018-08-09] MEDS: INSULIN GLARGINE UD 100 UNITS/ML SYR SUBCUT SCH ×2 (11:59→22:29)
[2018-08-09 16:47] LABS: PLATELET ESTIMATE NORMAL
[2018-08-09] MEDS: CLOPIDOGREL 75MG TABLET PO SCH (17:01)
[2018-08-09] MEDS: ATORVASTATIN CALCIUM 40MG TABLET PO SCH (20:53)
[2018-08-10] VITALS (16 sets, daily range): BP systolic 98–136; BP diastolic 55–81
[2018-08-10] MEDS: IPRATROPIUM/ALBUTEROL 0.5-3(2.5)MG/3ML NEB HHN SCH ×6 (00:28→21:31)
[2018-08-10] MEDS: ACETYLCYSTEINE 100MG/ML 10% VIAL 4ML INH SCH ×3 (00:29→16:35)
[2018-08-10] MEDS: PIPERACILLIN/TAZ 3.375G PREMIX 50 ML IV SCH ×4 (04:42→20:39)
[2018-08-10] MEDS: OXYCODONE HCL/ACETAMINOPHEN 5/325MG TABLET PO PRN ×3 (04:48→20:39)
[2018-08-10] MEDS: BLOOD SUGAR DIAGNOSTIC STRIP TEST SCH ×4 (06:03→20:40)
[2018-08-10 06:44] LABS: BASOPHILS % 0.2 % (0.0-2.0); EOSINOPHILS % 1.2 % (0.0-5.0); HEMATOCRIT. 30.6 % (42.0-52.0); HEMOGLOBIN. 10.8 g/dL (14.0-18.0); LYMPHOCYTES % 12.4 % (20.0-50.0); MEAN CORPUSCULAR HEMOGLOBIN 29.8 pg (28.0-32.0); MEAN CORPUSCULAR VOLUME 84.3 fL (80.0-94.0); MEAN PLATELET VOLUME 8.2 fl (7.4-10.4); MONOCYTES % 7.2 % (2.0-8.0); PLATELET 144 x1000/uL (130-400); RED BLOOD CELL COUNT 3.63 mill/uL (4.7-6.1); RED CELL DISTRIBUTION WIDTH 15.3 % (11.6-14.6)
[2018-08-10 07:36] LABS: CHLORIDE 105 mEq/L (98-107)
[2018-08-10] MEDS: INSULIN LISPRO 100 UNITS/ML SUBCUT SCH ×4 (08:01→20:40)
[2018-08-10] MEDS: METOPROLOL TARTRATE 50MG TABLET PO SCH ×2 (08:04→20:39)
[2018-08-10] MEDS: CLOPIDOGREL 75MG TABLET PO SCH (08:04)
[2018-08-10] MEDS: DOCUSATE SODIUM 100MG CAPSULE PO SCH ×2 (08:04→17:50)
[2018-08-10] MEDS: ASPIRIN 81MG EC TABLET PO SCH (08:04)
[2018-08-10] MEDS: LISINOPRIL 5MG TABLET PO SCH (08:05)
[2018-08-10] MEDS: FAMOTIDINE 20MG/2ML VIAL IV SCH (08:05)
[2018-08-10] MEDS ORDERED: POTASSIUM CHLORIDE 20MEQ TABLET SR PO NR (08:15)
[2018-08-10] MEDS: BACITRACIN 15GM TUBE TOP SCH ×2 (09:00→16:18)
[2018-08-10] MEDS: INSULIN GLARGINE UD 100 UNITS/ML SYR SUBCUT SCH ×2 (09:57→22:01)
[2018-08-10] MEDS: FUROSEMIDE 40MG/4ML VIAL IVP NR ×4 (11:30→12:29)
[2018-08-10] MEDS: ATORVASTATIN CALCIUM 40MG TABLET PO SCH (20:39)
[2018-08-11] VITALS (11 sets, daily range): BP systolic 100–127; BP diastolic 54–80
[2018-08-11] MEDS: IPRATROPIUM/ALBUTEROL 0.5-3(2.5)MG/3ML NEB HHN SCH ×3 (00:46→15:17)
[2018-08-11] MEDS: PIPERACILLIN/TAZ 3.375G PREMIX 50 ML IV SCH ×3 (02:13→15:00)
[2018-08-11] MEDS: BLOOD SUGAR DIAGNOSTIC STRIP TEST SCH ×3 (06:50→16:42)
[2018-08-11 07:05] LABS: BASOPHILS % 0.2 % (0.0-2.0); EOSINOPHILS % 1.8 % (0.0-5.0); HEMATOCRIT. 31.8 % (42.0-52.0); HEMOGLOBIN. 11.2 g/dL (14.0-18.0); LYMPHOCYTES % 17.1 % (20.0-50.0); MEAN CORPUSCULAR HEMOGLOBIN 29.7 pg (28.0-32.0); MEAN CORPUSCULAR VOLUME 83.9 fL (80.0-94.0); MEAN PLATELET VOLUME 7.8 fl (7.4-10.4); MONOCYTES % 8.5 % (2.0-8.0); NEUTROPHILS % 72.4 % (40.0-76.0); PLATELET 175 x1000/uL (130-400); RED BLOOD CELL COUNT 3.79 mill/uL (4.7-6.1); RED CELL DISTRIBUTION WIDTH 15.7 % (11.6-14.6)
[2018-08-11] MEDS: INSULIN LISPRO 100 UNITS/ML SUBCUT SCH ×3 (07:20→17:44)
[2018-08-11 07:35] LABS: CHLORIDE 107 mEq/L (98-107)
[2018-08-11] MEDS: METOPROLOL TARTRATE 50MG TABLET PO SCH (08:44)
[2018-08-11] MEDS: ASPIRIN 81MG EC TABLET PO SCH (08:44)
[2018-08-11] MEDS: CLOPIDOGREL 75MG TABLET PO SCH (08:44)
[2018-08-11] MEDS: LISINOPRIL 5MG TABLET PO SCH (08:44)
[2018-08-11] MEDS: DOCUSATE SODIUM 100MG CAPSULE PO SCH ×2 (08:44→17:51)
[2018-08-11] MEDS: BACITRACIN 15GM TUBE TOP SCH ×2 (08:45→17:44)
[2018-08-11] MEDS: FAMOTIDINE 20MG/2ML VIAL IV SCH (08:45)
[2018-08-11] MEDS: INSULIN GLARGINE UD 100 UNITS/ML SYR SUBCUT SCH (11:13)
[2018-08-11] MEDS: ACETYLCYSTEINE 100MG/ML 10% VIAL 4ML INH SCH (15:17)
[2018-08-11] MEDS ORDERED: LIP40 PO (15:56)
[2018-08-11] MEDS ORDERED: METO-539 PO (15:56)
[2018-08-11] MEDS ORDERED: LISI-186 PO (15:56)
[2018-08-11] MEDS ORDERED: ASPI-1158 PO (15:56)
[2018-08-11] MEDS ORDERED: CLOP75TA16 PO (15:56)
[2018-08-11] MEDS ORDERED: AZIT500T5 MT (16:09)
== END 2018-08-11 17:59 | disposition home health service (06) | DRG 166 ==
LOC: ER 13:06 → 6WST 19:14 → ENRESERV 07-30 01:26 → 3WST 07-31 16:25 → CVICU 08-06 10:45 → 3WST 08-08 16:50
PROVIDERS: ADMIT Internal Medicine; ATTEND Internal Medicine
PROC: 4A023N7 Measurement of Cardiac Sampling and Pressure, Left Heart, Percutaneous Approach (ICD-10-PCS; 2018-07-31)
PROC: B2111ZZ Fluoroscopy of Multiple Coronary Arteries using Low Osmolar Contrast (ICD-10-PCS; 2018-07-31)
PROC: 5A1935Z Respiratory Ventilation, Less than 24 Consecutive Hours (ICD-10-PCS; principal; 2018-08-06)
PROC: 02100Z9 Bypass Coronary Artery, One Artery from Left Internal Mammary, Open Approach (ICD-10-PCS; 2018-08-06)
PROC: 021109W Bypass Coronary Artery, Two Arteries from Aorta with Autologous Venous Tissue, Open Approach (ICD-10-PCS; 2018-08-06)
PROC: 5A1221Z Performance of Cardiac Output, Continuous (ICD-10-PCS; 2018-08-06)
PROC: 06BQ0ZZ Excision of Left Saphenous Vein, Open Approach (ICD-10-PCS; 2018-08-06)
PROC: B24BZZ4 Ultrasonography of Heart with Aorta, Transesophageal (ICD-10-PCS; 2018-08-06)
PROC: 30233K1 Transfusion of Nonautologous Frozen Plasma into Peripheral Vein, Percutaneous Approach (ICD-10-PCS; 2018-08-06)
PROC: 30233N1 Transfusion of Nonautologous Red Blood Cells into Peripheral Vein, Percutaneous Approach (ICD-10-PCS; 2018-08-06)
PROC: 30233R1 Transfusion of Nonautologous Platelets into Peripheral Vein, Percutaneous Approach (ICD-10-PCS; 2018-08-06)
PROC: 30233M1 Transfusion of Nonautologous Plasma Cryoprecipitate into Peripheral Vein, Percutaneous Approach (ICD-10-PCS; 2018-08-06)
DX: I25.110 Atherosclerotic heart disease of native coronary artery with unstable angina pectoris (principal); J96.00 Acute respiratory failure, unspecified whether with hypoxia or hypercapnia; E87.3 Alkalosis; I24.9 Acute ischemic heart disease, unspecified; I25.82 Chronic total occlusion of coronary artery; D50.9 Iron deficiency anemia, unspecified; E11.9 Type 2 diabetes mellitus without complications; D72.825 Bandemia; E78.5 Hyperlipidemia, unspecified; E78.00 Pure hypercholesterolemia, unspecified; R74.0 Nonspecific elevation of levels of transaminase and lactic acid dehydrogenase [LDH]; I11.9 Hypertensive heart disease without heart failure; I25.5 Ischemic cardiomyopathy; I25.2 Old myocardial infarction; Z79.82 Long term (current) use of aspirin; Z82.49 Family history of ischemic heart disease and other diseases of the circulatory system; Z87.828 Personal history of other (healed) physical injury and trauma; Z91.81 History of falling; Z79.84 Long term (current) use of oral hypoglycemic drugs; Z79.899 Other long term (current) drug therapy
CPT/HCPCS: 36415; 36600; 70470; 71045; 71046; 80048; 80061; 80076; 80305; 82375; 82550; 82553; 82805; 82962; 83036; 83735; 83880; 84100; 84132; 84443; 84478; 84484; 85347; 85384; 85520; 86850; 86900; 86920; 86927; 87070; 93005; 93306; 93458; 93880; 93970; 94002; 94640; 94664; 97110; 97116; 97163; 97167; 97530; 97535; 99285; C1725; C1729; C1751; C1760; C1769; C1887; C1893; J0282; J0690; J1170; J1250; J1644; J1815; J1885; J1940; J2250; J2260; J2370; J2405; J2440; J2543; J2704; J2720; J3010; J3475; J3480; J3490; J7030; J7040; J7050; J7060; J7120; J7608; J7620; L3908; P9012; P9016; P9017; P9021; P9034; P9041; P9047; Q9967; Q9968